=== PATIENT | female | born 2000 | race Caucasian/White ===

== ENCOUNTER 2020-02-23 23:03 | Emergency (ER) | payer BC ==
[~2020-02-23] VITALS: Ht 172.7 cm; Wt 56.2 kg
[2020-02-23] MEDS ORDERED: SODIUM CHLORIDE 0.9% 1,000ML IVBOLUS ONE (23:30)
[2020-02-23] MEDS ORDERED: ONDANSETRON 2MG/ML, 2ML IVPush ONE (23:30)
[2020-02-23] MEDS ORDERED: SODIUM CHLORIDE FLUSH 10ML SYR IVF ONE (23:30)
[2020-02-23] MEDS ORDERED: ONDANSETRON 2MG/ML, 2ML ONE (23:47)
[2020-02-23 23:52] LABS: MEAN CORPUSCULAR HEMOGLOBIN 29.6 pg (27.0-34.8); MEAN CORPUSCULAR HGB CONC 33.7 g/dL (32.4-35.8); PLATELET COUNT 236 x10^3/uL (130-400); RED BLOOD COUNT 4.75 x10^6/uL (3.82-5.3); RED CELL DISTRIBUTION WIDTH 12.2 % (9.6-15.2)
[2020-02-24 00:05] LABS: ALANINE AMINOTRANSFERASE 12 U/L (12-78); ALBUMIN 3.5 g/dL (3.4-5.0); ANION GAP 9 mmol/L (5-15); CALCIUM 8.5 mg/dL (8.5-10.1); CHLORIDE 104 mmol/L (98-107); CREATININE 1.03 mg/dL (0.55-1.02)
[2020-02-24 00:09] LABS: ALKALINE PHOSPHATASE 40 U/L (45-117); BILIRUBIN,TOTAL 0.9 mg/dL (0.2-1.0); TOTAL PROTEIN 7.4 g/dL (6.4-8.2)
[2020-02-24 00:15] LABS: MD YES
--- NOTE | 2020-02-24 00:15 | NUR ---
A&o x4, answering questions appropriately. States sudden onset RLQ pain with associated subjective fever/chills, nausea, emesis x1, diarrhea with small amount of BRB starting Saturday. Denies chest pain/SOB. Denies hx of similar sx, denies hx of abd surgeries. States she is healthy otherwise. Abd soft, flat, nondistended. Rebound tenderness to umbilicus noted with RLQ palpation. Decreased PO intake d/t N/V. Provider at bedside for eval. Ambulating independently, steady gait. Bed low, side rails up, call frankel within reach
[2020-02-24 00:19] LABS: BAND#(MANUAL) 1.33 x10^3/uL; BANDS%(MANUAL) 14 % (0-7); BASOS% (MANUAL) 1 % (0-1); LYMPH#(MANUAL) 1.14 x10^3/uL (1-6.1); LYMPHS% (MANUAL) 12 % (22-44); METAMYELOCYTES% (MANUAL) 1 % (0-1); MONOS#(MANUAL) 0.19 x10^3/uL (0.3-2.7); MONOS% (MANUAL) 2 % (2-9); SEG#(MANUAL) 6.65 x10^3/uL (1.8-8); SEGS% (MANUAL) 70 % (42-75)
[2020-02-24 00:20] LABS: <PLATELET ESTIMATE> ADEQUATE; <PLT MORPHOLOGY> NORMAL PLT MORPH; <RBC MORPHOLOGY> NORMAL
[2020-02-24] MEDS ORDERED: OMNIPAQUE 350 MG/ML, 100ML BOTTLE ONE (00:55)
--- NOTE | 2020-02-24 02:05 | NUR ---
Resting comfortably. Aware we are waiting for results of CT/blood work. Bed low, side rails up, call frankel within reach
[2020-02-24] MEDS ORDERED: POTASSIUM CHLORIDE 20 MEQ TAB.ER.PRT PO ONE (02:30)
[2020-02-24] MEDS ORDERED: POTASSIUM CHLORIDE 20 MEQ TAB.ER.PRT ONE (02:32)
[2020-02-24] MEDS ORDERED: PROMETHAZINE 25 MG/ML, 1ML IM STA (02:33)
[2020-02-24 02:35] LABS: MICROSCOPIC NOT IND
[2020-02-24] MEDS ORDERED: PROMETHAZINE 25 MG/ML, 1ML ONE (02:35)
--- NOTE | 2020-02-24 02:40 | NUR ---
Pt c/o increased nausea, provider aware. Plan for IM reglan
[2020-02-24] MEDS ORDERED: birth control PO (02:42)
--- NOTE | 2020-02-24 02:45 | NUR ---
TASK RN: VS UPDATED. MEDICATED PER JUL. REBEL KAT IN TO DISCUSS PLAN FOR D/C WITH PT. PT. DENIES OTHER NEEDS.
[2020-02-24 03:50] VITALS: BP 107/60
== END 2020-02-24 03:52 | disposition home or self-care (01) ==
LOC: ED 02-24 00:06
DX: K52.9 Noninfective gastroenteritis and colitis, unspecified (principal); E87.6 Hypokalemia; R10.84 Generalized abdominal pain; R11.2 Nausea with vomiting, unspecified; R10.31 Right lower quadrant pain
CPT/HCPCS: 36415; 74177; 80053; 81003; 83690; 84703; 85025; 93005; 96361; 96372; 96374; 99285; J2405; J2550; J7030; Q9967